=== PATIENT | female | born 1975 | race Asian ===

== ENCOUNTER → 2023-10-28 07:00 | Outpatient (REF) | payer BC, SELFPAY | LOC: WDC 07:00 | PROVIDERS: ATTENDING PHYSICIAN Internal Medicine | DX: Z12.31 Encounter for screening mammogram for malignant neoplasm of breast (principal) | CPT/HCPCS: 77063; 77067 ==

== ENCOUNTER → 2024-06-10 08:33 | Outpatient (REF) | payer BC, SELFPAY ==
[2024-06-10 09:14] LABS: % Basophils 1.3 % (0-2); % Eosinophils 2.8 % (0-6); % Immature Granulocytes 0.4 % (0-0.5); % Lymphocytes 42.4 % (20.5-51.1); % Monocytes 7.2 % (1.7-9.3); % Neutrophils 45.9 % (42.2-75.2); Absolute Basophils 0.1 10^3/uL (0-0.2); Absolute Eosinophils 0.1 10^3/uL (0-0.7); Absolute Monocytes 0.3 10^3/uL (0.1-0.6); Absolute Neutrophils 2.2 10^3/uL (1.4-6.5); Hematocrit 40.7 % (37.0-47.0); Hemoglobin 14.5 g/dL (12.0-16.0); Mean Corp Hgb Conc. 35.6 g/dL (33.0-37.0); Mean Corpuscular Hgb 30.9 pg (27.0-31.0); Mean Corpuscular Volume 86.6 fL (81.0-99.0); Mean Platelet Volume 9.1 fL (7.4-10.4); Nucleated Red Blood Cells % 0 %; Platelet Count 217 10^3/uL (130-400); Red Cell Dist. Width 12.4 % (11.5-14.5); White Blood Cell Count 4.7 10^3/uL (4.8-10.8)
[2024-06-10 09:15] LABS: Urine Albumin Negative (Neg - Trace); Urine Bilirubin Negative (Negative); Urine Character Clear (Clear); Urine Color Yellow; Urine Glucose Negative (Negative); Urine Ketone Negative (Negative); Urine Leukocyte Negative (Negative); Urine Nitrite Negative (Negative); Urine Occult Blood Negative (Negative); Urine Specific Gravity 1.015 (<1.030); Urine Urobilinogen Negative (Neg - 1+); Urine pH 6.5 (5.0-9.0)
[2024-06-10 11:25] LABS: TSH 0.51 uIU/ml (0.47-4.68)
[2024-06-10 12:12] LABS: ALT (SGPT) 57 U/L (0-35); AST (SGOT) 37 U/L (14-36); Albumin 4.9 g/dl (3.5-5.0); Alkaline Phosphatase 66 U/L (38-126); Blood Urea Nitrogen 19 mg/dl (7-17); Calcium 9.8 mg/dl (8.4-10.2); Carbon Dioxide 24 mmol/L (22-30); Chloride 105 mmol/L (98-107); Glucose 96 mg/dl (70-99); HDL Cholesterol 59 mg/dl; LDL Cholesterol, Calculated 96 mg/dl; Potassium 4.3 mmol/L (3.5-5.1); Sodium 146 mmol/L (135-145); Total Bilirubin 0.6 mg/dl (0.2-1.3); Total Cholesterol 172 mg/dl (50-199); Total Protein 7.5 g/dl (6.3-8.2); Triglyceride 89 mg/dl (10-149); Very Low Density Lipoprotein 17 mg/dl (0-30); eGFR > 60.00
== END ==
LOC: REG 08:33
PROVIDERS: ATTENDING PHYSICIAN Internal Medicine
DX: E78.00 Pure hypercholesterolemia, unspecified (principal); I10 Essential (primary) hypertension
CPT/HCPCS: 36415; 80053; 80061; 81003; 84443; 85025

== ENCOUNTER → 2024-07-21 06:52 | Outpatient (REF) | payer BC, SELFPAY | LOC: RAD 06:52 | PROVIDERS: ATTENDING PHYSICIAN Internal Medicine | DX: R79.89 Other specified abnormal findings of blood chemistry (principal) | CPT/HCPCS: 76700 ==

== ENCOUNTER → 2024-10-25 14:42 | Outpatient (REF) | payer BC, SELFPAY | LOC: CPAP 14:42 | PROVIDERS: ATTENDING PHYSICIAN Obstetrics & Gynecology | DX: Z11.51 Encounter for screening for human papillomavirus (HPV) (principal); Z01.419 Encounter for gynecological examination (general) (routine) without abnormal findings | CPT/HCPCS: 87624 ==

== ENCOUNTER → 2024-11-23 13:14 | Outpatient (REF) | payer BC, SELFPAY | LOC: WDC 13:14 | PROVIDERS: ATTENDING PHYSICIAN Internal Medicine | DX: Z12.31 Encounter for screening mammogram for malignant neoplasm of breast (principal) | CPT/HCPCS: 77063; 77067 ==

== ENCOUNTER → 2025-01-23 07:01 | Outpatient (REF) | payer BC, SELFPAY | LOC: RAD 07:01 | PROVIDERS: ATTENDING PHYSICIAN Internal Medicine | DX: K76.89 Other specified diseases of liver (principal) | CPT/HCPCS: 76700 ==